=== PATIENT | male | born 1940 | race Caucasian/White ===

== ENCOUNTER 2022-02-06 11:49 | Day surgery (SDC) | payer MEDICARE, SELFPAY ==
[2022-01-30 10:14] VITALS: BMI 25.1
[2022-02-06 12:17] VITALS: BMI 24.4
--- NOTE | 2022-02-06 12:27 | WPDHPUPDATE1 ---
History and Physical Update Update Date/Time: 02/06/22 12:27 History and Physical has been reviewed, including an updated exam of the patient. There are NO changes in the patient's condition. Risks, benefits, and alternatives have been discussed and questions answered. Patient agrees to proceed with procedure.
[2022-02-06] MEDS: AMPICILLIN 2 GM/NS 100 ML 2 GM/100 ML BAG IVPB (12:35)
--- NOTE | 2022-02-06 12:39 | WPDANESEPPF ---
Anes - Initial Pre Proc Eval Procedure: Operation Date: 02/06/22 13:30 Proposed Procedures p Esophagogastroduodenoscopy - William Valdivia MD Date/Time: 02/06/22 12:39 Surgeon: William Valdivia MD Pre Op Diagnosis: Dyspepsia Patient Data Age: 81 Gender: M Height: 1.85 m Weight: 84 kg Allergies Allergy/AdvReac Type Severity Reaction Status Date / Time celecoxib Allergy Mild Rash Verified 02/06/22 12:11 montelukast Allergy Mild Hives Verified 02/06/22 12:11 Penicillins Allergy Unknown DIZZINESS Verified 02/06/22 12:11 Home Medications Medication Instructions Recorded Confirmed Type acetaminophen 500 mg capsule 500 mg PO Q6H PRN Pain 01/12/22 02/06/22 History cholecalciferol (vitamin D3) 25 25 mcg PO DAILY 01/12/22 02/06/22 History mcg (1,000 unit) capsule ibuprofen 400 mg tablet 400 mg PO Q6H PRN Pain 01/12/22 02/06/22 History levothyroxine 100 mcg capsule 100 mcg PO DAILY 01/12/22 02/06/22 History liothyronine 5 mcg tablet 5 mcg PO DAILY 01/12/22 02/06/22 History meclizine 12.5 mg tablet 12.5 mg PO TID 01/12/22 02/06/22 History mirtazapine 45 mg tablet 45 mg PO HS 01/12/22 02/06/22 History nitroglycerin 0.4 mg sublingual 0.4 mg sublingual Q5M PRN Chest 01/12/22 02/06/22 History tablet Pain simvastatin 20 mg tablet 20 mg PO DAILY 01/12/22 02/06/22 History triamcinolone acetonide 55 mcg 1 spray intranasal DAILY 01/12/22 02/06/22 History nasal spray aerosol aspirin 81 mg tablet,delayed 81 mg PO DAILY 01/17/22 02/06/22 History release pantoprazole 40 mg tablet,delayed 40 mg PO QAM 01/17/22 02/06/22 History release Patient hx anesthesia problems: none Family hx anesthesia problems: none Results Review: All pre-operative results and documents have been reviewed as part of the pre-operative evaluation. [facility] Past Medical History Medical History Arthritis BPH with urinary obstruction Coronary artery disease Dyslipidemia Erectile dysfunction Hyperlipidemia Hypothyroidism Obstructive sleep apnea Tonsillectomy planned Surgical History Surgical History H/O foot surgery H/O knee surgery History of heart artery stent Previous back surgery Social History Social History Smoking status: Never smoker Alcohol intake: former Alcohol use details: social Substance use: never Substance use type: does not use Living arrangements: with family Spiritual care concerns: No Anes - Eval Final PreProcedure Day of Procedure 02/06/22 12:39 Patient weight: normal Heart: regular rate and rhythm Lungs: clear to auscultation Airway: Mallampati scale class II Last oral intake: >/= 8 hours ASA classification: III Emergent: no Anesthetic plan: proceed Anesthesia type and monitoring: general GIVS Results Review: All pre-operative results and documents have been reviewed as part of the pre-operative evaluation. Informed Consent: The patient's anesthetic plan and its attendant risks and benefits were discussed with the patient/family/POA. Questions were solicited and answers provided to the satisfaction of the patient/family/POA.
[2022-02-06] MEDS: LACTATED RINGERS 1,000 ML 150 ML IV CONT (12:49)
[2022-02-06 13:35] VITALS: BP 109/74; PULSE 58; RESP 16; O2SAT 96
[2022-02-06 13:45] VITALS: BP 123/71; PULSE 58; RESP 16; O2SAT 96
[2022-02-06 13:55] VITALS: BP 154/98; PULSE 62; RESP 18; O2SAT 97
--- NOTE | 2022-02-06 13:56 | WPDANESPN ---
Anes - Prog Note Post-Op Date/Time: 02/06/22 13:56 Cardiovascular status: normal Respiratory status: normal Airway patency: baseline Mental status: baseline Post-Op hydration status: normal Vital Signs: Last Vital Signs Pulse 58 L 02/06/22 13:45 Resp 16 02/06/22 13:45 BP 123/71 02/06/22 13:45 Pulse Ox 96 02/06/22 13:45 O2 Del Method Room Air 02/06/22 13:45 Pain Score (VAS): 0 I/O: Intake & Output 02/05/22 02/06/22 02/06/22 23:59 07:59 15:59 Intake Total 300 Balance 300 Patient Feedback: Patient satisfied with anesthetic care.
== END 2022-02-06 14:19 | disposition home or self-care (01) ==
PROVIDERS: PCP Family Medicine; Referring Provider Internal Medicine; Visit Provider Internal Medicine Gastroenterology
PROC: 0DJ08ZZ Inspection of Upper Intestinal Tract, Via Natural or Artificial Opening Endoscopic (ICD-10-PCS; CPT 43235; principal; 2022-02-06 13:30)
DX: K30 Functional dyspepsia (principal)
CPT/HCPCS: 43239

== ENCOUNTER 2024-08-29 10:59 | Emergency (ER) | payer MEDICARE, SELFPAY ==
--- NOTE | ~2024-08-29 | XR_ITS ---
EXAMINATION: XR chest 2V DATE: 08/29/2024 12:02 INDICATION: Cough. TECHNIQUE: Frontal and lateral views of the chest were obtained. COMPARISON: Single view 10/11/2012 FINDINGS: Calcified pulmonary nodules and calcified hilar and mediastinal lymph nodes are consistent with old granulomatous disease. No pleural effusion or pneumothorax. The heart size is normal. There are old healed bilateral rib fractures. IMPRESSION: 1. No acute cardiopulmonary disease. Reviewed, dictated and finalized at location A. [facility]
--- OUTSIDE RECORDS SUMMARY | 2024-08-29 11:01 | XMS_ITS | Patient Health Summary ---
Author Organization [facility] Address [address] [place] [address] Care Team Providers Care Grove Worker Name Role Phone Tam Candelario MD Primary Care Provider [phone] Ilya Morrison MD Unavailable [phone] Anthony Granados MD Unavailable [phone] Note from [facility],non-owned Affiliates and Associated Physician Practices is amultiple site organization consisting of ambulatory clinics and hospital sitesin [place], [place], [place] and [place]. This disclosure is being madepursuant to the Care Everywhere program and may not contain all information available regarding this patient. Last updated 18.[facility] Allergies * Bupropion(Unknown) * Famotidine(Urticaria) -Medium Criticality * Montelukast(Urticaria) -Medium Criticality * Penicillins(Other) * Sertraline(Unknown) * Celecoxib(Rash) -Medium Criticality,Inactive * Esomeprazole(Urticaria) -Medium Criticality,Inactive Medications * Be aware that medications may not be up to date on this document. Alwaysverify current medications with the patient. * vitamin D3 (CHOLECALCIFEROL) (25 MCG) 1000 UNIT capsule(Started 07/21/2020) Take 1 (one) capsule by mouth once daily * vitamin B-12 (CYANOCOBALAMIN) 500 MCG tablet(Started 07/21/2020) Take 2 (two) tablets by mouth once daily * dutasteride (AVODART) 0.5 MG capsule(Started 01/05/2021) at bedtime * levothyroxine (SYNTHROID) 100 MCG tablet(Started 12/29/2020) once daily * liothyronine (CYTOMEL) 5 MCG tablet(Started 12/21/2020) once daily * mirtazapine (REMERON) 45 MG tablet(Started 12/29/2020) at bedtime * simvastatin (ZOCOR) 20 MG tablet(Started 12/21/2020) at bedtime * meclizine (ANTIVERT) 12.5 MG tablet Take 1 (one) tablet by mouth 3 times daily as needed for Dizziness * triamcinolone (NASACORT AQ) 55 MCG/ACT nasal inhaler [place] 1 (one) spray into each nostril as needed * amoxicillin (AMOXIL) 500 MG tablet(Started 01/25/2021) TAKE 4 TABLETS BY MOUTH 1 HOUR PRIOR TO APPOINTMENT * acetaminophen (TYLENOL) 325 MG tablet(Started 03/14/2021) Take 2 (two) tablets by mouth every 6 hours Maximum allowable Acetaminophen amount = 4 Grams (4000 mg) / 24 hours. * aspirin EC (Ecotrin) 81 MG tablet Take 1 (one) tablet by mouth once daily Active Problems Problem Noted Date Diagnosed Date Primary osteoarthritis of left knee 01/18/2021 Sleep apnea 11/27/2017 Spondylisthesis 11/25/2017 Vertigo 08/05/2017 Social History Tobacco Use Types Packs/Day Years Used Date Smoking Tobacco: Former Smokeless Tobacco: Never Tobacco Cessation:Counseling Given: Not Answered Alcohol Use Standard Drinks/Week Comments Yes 14 (1 standard drink = 0.6 oz pure alcohol) 2 each evening sometimes more sometimes less PHQ-2 Answer Date Recorded Patient Health Questionnaire-2 Score 2 12/28/2023 Sex and Gender Information Value Date Recorded Sex Assigned at Not on file Gender Identity Not on file Sexual Orientation Not on file Last Filed Vital Signs Vital Sign Reading Time Taken Comments Blood Pressure 153/98 12/30/2023 10:23 AM CDT Pulse 61 12/30/2023 10:23 AM CDT Temperature 36.5 C (97.7 F) 03/14/2021 11:23 AM CDT Respiratory Rate 18 03/14/2021 11:23 AM CDT Oxygen Saturation 100% 03/14/2021 11:23 AM CDT Inhaled Oxygen Concentration - - Weight 83.9 kg (185 lb) 12/30/2023 10:23 AM CDT Height 182.9 cm (6') 12/30/2023 10:23 AM CDT Body Mass Index 25.09 12/30/2023 10:23 AM CDT Medical Devices Implanted Type Area Food Production Machine Operator Device Identifier Shelf Expiration Date Model / Serial / Lot Cmnt Bone Djo Srg Cblt 40gm Hvisc Strl Implanted:Qty: 2 on 03/13/2021 by Ilya Morrison MD at [facility] Left: Knee [employer] 08/13/2022 [id number] / / [id number] Cmpnt Fem Kn Lt Cr Cmnt Prm Vngrd Intlk Implanted:Qty: 1 on 03/13/2021 by Ilya Morrison MD at [facility] Left: Knee [employer] 02/10/2030 [id number] / / [id number] Tray Tib 83mm Kn Cocr I Beam Implanted:Qty: 1 on 03/13/2021 by Ilya Morrison MD at [facility] Left: Knee [employer] 03/13/2030 [id number] / / [id number] Cmpnt Ptlr 31mm 1 Pg Wire Ascnt Arcm Kn Implanted:Qty: 1 on 03/13/2021 by Ilya Morrison MD at [facility] Left: Knee [employer] 01/10/[id number] / / [id number] Brng [id number] Vngrd Arcm Kn Ant Stab Implanted:Qty: 1 on 03/13/2021 by Ilya Morrison MD at [facility] Left: Knee [employer] 11/10/2025 [id number] / / [id number] Explanted Type Area Food Production Machine Operator Device Identifier Shelf Expiration Date Model / Serial / Lot Cmpnt Ptlr 31mm 1 Pg Wire Ascnt Arcm Kn Explanted:Qty: 1 on 03/13/[address] [facility] Left: Knee [employer] 01/10/[id number] / / [id number] Procedures * XR PELVIS W BILAT HIP 2VW(Performed 12/30/2023) Performed for Iliotibial band tendinitis of right side, Primary osteoarthritis of both hips * XR LUMBAR SPINE 4VW OR MORE(Performed 12/30/2023) Performed for Spinal stenosis of lumbar region, unspecified whether neurogenic claudication present, Lumbar radiculitis, Gait difficulty * XR KNEE BILAT 3VW(Performed 12/17/2023) Performed for Status post left knee replacement, Right knee pain, unspecified chronicity * XR KNEE LEFT 3VW(Performed 04/25/2021) Performed for Aftercare following left knee joint replacement surgery * NEURAXIAL BLOCK(Performed 03/13/2021) * ARTHROPLASTY TOTAL KNEE(Performed 03/13/2021) * XR KNEE LEFT 3VW(Performed 01/17/2021) Performed for Left knee pain, unspecified chronicity Results * XR PELVIS W BILAT HIP 2VW (12/30/2023 11:30 AM CDT) Anatomical Region Laterality Modality Pelvis, Lower Extremity Radiogra phic Imaging 12/30/2023 1:15 PM CDT Impressions 12/30/2023 1:28 PM CDT IMPRESSION: Degenerative changes. Edited by Haleigh Juarez on 12/30/2023 1:17 PM > Interpreting Provider: Heath Murry MD on 12/30/2023 1:28 PM Narrative 12/30/2023 1:28 PM CDT PROCEDURE: XR PELVIS W BILAT HIP 2VW DATE/TIME OF EXAM: 12/30/2023 11:31 AM CLINICAL INFORMATION: None relevant/not provided if blank. Indication: M76.31: Iliotibial band syndrome, right leg M16.0: Bilateral primary osteoarthritis of hip Additional History: COMPARISON: None. TECHNIQUE: Pelvis AP view and bilateral hips 2 views each. FINDINGS: Mild joint space narrowing of both hips is demonstrated. There is no acute fracture, subluxation or dislocation. Procedure Note Heath Murry MD - 12/30/2023 PROCEDURE: XR PELVIS W BILAT HIP 2VW DATE/TIME OF EXAM: 12/30/2023 11:31 AM CLINICAL INFORMATION: None relevant/not provided if blank. Indication: M76.31: Iliotibial band syndrome, right leg M16.0: Bilateral primary osteoarthritis of hip Additional History: COMPARISON: None. TECHNIQUE: Pelvis AP view and bilateral hips 2 views each. FINDINGS: Mild joint space narrowing of both hips is demonstrated. There is noacute fracture, subluxation or dislocation. IMPRESSION: Degenerative changes. Edited by Haleigh Juarez on 12/30/2023 1:17 PM > Interpreting Provider: Heath Murry MD on 12/30/2023 1:28 PM Anthony Granados MD DIAGNOSTIC IMAGING O RDERABLES * XR LUMBAR SPINE 4VW OR MORE (12/30/2023 11:30 AM CDT) Anatomical Region Laterality Modality Spine Radiographic Nicolasa ging 12/30/2023 1:38 PM CDT Impressions 12/30/2023 1:52 PM CDT IMPRESSION: 1. Grade 1 anterolisthesis L4 upon L5. 2. Degenerative changes. Edited by Haleigh Juarez on 12/30/2023 1:47 PM > Interpreting Provider: Heath Murry MD on 12/30/2023 1:52 PM Narrative 12/30/2023 1:52 PM CDT PROCEDURE: XR LUMBAR SPINE 4VW OR MORE DATE/TIME OF EXAM: 12/30/2023 11:31 AM CLINICAL INFORMATION: None relevant/not provided if blank. Indication: M48.061: Spinal stenosis, lumbar region without neurogenic claudication M54.16: Radiculopathy, lumbar region R26.9: Unspecified abnormalities of gait and mobility Additional History: COMPARISON: None. TECHNIQUE: 5 views. FINDINGS: Grade 1 anterolisthesis L4 upon L5 is present. Endplate degenerative changes are present. There is no acute fracture. Procedure Note Heath Murry MD - 12/30/2023 PROCEDURE: XR LUMBAR SPINE 4VW OR MORE DATE/TIME OF EXAM: 12/30/2023 11:31 AM CLINICAL INFORMATION: None relevant/not provided if blank. Indication: M48.061: Spinal stenosis, lumbar region without neurogenic claudication M54.16: Radiculopathy, lumbar region R26.9: Unspecified abnormalities of gait and mobility Additional History: COMPARISON: None. TECHNIQUE: 5 views. FINDINGS: Grade 1 anterolisthesis L4 upon L5 is present. Endplate degenerative changes are present. There is no acute fracture. IMPRESSION: 1. Grade 1 anterolisthesis L4 upon L5. 2. Degenerative changes. Edited by Haleigh Jaurez on 12/30/2023 1:47 PM > Interpreting Provider: Heath Murry MD on 12/30/2023 1:52 PM Anthony Granados MD DIAGNOSTIC IMAGING O RDERABLES * XR KNEE BILAT 3VW (12/17/2023 11:16 AM CDT) Narrative [facility] [address] - 12/17/2023 11:16 AM CDT Please see progress note in Epic for results. Ilya Morrison MD DIAGNOSTIC IMAGING O RDERARICARDO [facility] [address] * XR KNEE LEFT 3VW (04/25/2021 12:23 PM CDT) Only the most recent of2 resultswithin the time period is included. Anatomical Region Laterality Modality Lower Extremity Computed Radiogr aphy Narrative 04/25/2021 12:24 PM CDT Evelyn Jimenez, RT(R) 05/04/2021 5:12 PM See progress notes for results Fela Keller PA-C DIAGNOSTIC IM AGING ORDERABLES * Neuraxial Block (03/13/2021 11:17 AM CDT) Narrative Nate Mosley APRN-CRNA - 03/13/2021 11:17 AM CDT Nate Mosley APRN-CRNA 03/13/2021 11:19 AM Neuraxial Block Note Pre-Procedure: Procedure Name: Neuraxial Block Patient Location: OR Indications: surgical anesthesia Pre-Anesthetic Checklist: Patient identified, IV Checked, Risks and benefits discussed, Surgical consent verified, Monitors and equipment, Site examined, Pre-op evaluation done, Informed consent obtained, Questions answered/anesthesia questions answered and Allergies reviewed Anticoagulation/ Anti-thrombosis status confirmed? Yes Supplemental O2: room air Monitors: BP and continuous pluse ox Patient Condition: sedated, meaningful contact maintained throughout procedure Procedure: Block Type: Spinal Prep: Betadine Sterile Field: mask, cap/hat, sterile established and sterile gloves Approach: midline Spinal Block: Needle Type: spinal needle Needle Gauge: 22 Needle Length: 90 mm Placement Site: L3-4 Number of Attempts: 1 CSF: free flow, aspiration before injection, aspiration after injection Degree of difficulty: none Procedure Tolerance: tolerated well Sensory Level: T8 Motor Blockade: Yes (some, not complete ) Position post procedure: sitting Vital Signs: Vital signs monitored and stable throughout. See anesthesia record for details. Staff: Anesthesia Provider: Nate Mosley APRN-MULTIMEDIA AUTHORING SPECIALIST - performed the procedure Provider #1: Elvin Herring RN Additional Notes: Nevaeh SRNA Placed spinal Dirk Manley MD GENERAL ANESTHESIA O [facility] Care Teams Grove Worker Relationship Specialty [place] [address] [place] [address] PCP - General Family Medicine 01/17/21 [place] [address] [place] [id number] Surgeon Orthopedic Surgery 01/17/21 [place] [address] [place] [address] Physical Medicine and Rehabilitation 12/30/23
--- OUTSIDE RECORDS SUMMARY | 2024-08-29 11:01 | XMS_ITS | Clinical Summary ---
Author Organization [facility] Care Team Providers Care Front End Manager Name Role Phone Tam Candelario MD Primary Care Provider [phone] Allergies Active Allergy Reactions Criticality Noted Date Comments Bupropion Unknown 03/28/2013 Cannot recall Pt unaware of allergy Celecoxib Rash Medium 04/14/2021 Esomeprazole Hives,Urticaria Medium 01/02/2016 Pt unaware of allergy Famotidine Hives,Urticaria Medium 01/02/2016 Montelukast Hives,Urticaria Medium 01/02/2016 Penicillins Other (See comments) Low 01/02/2016 Passing out Passing out as a child Takes amoxicillin at dentist Sertraline Unknown 03/28/2013 Cannot recall Not aware of this allergy Medications acetaminophen (TYLENOL) 500 mg tablet Take 1 tablet (500 mg total) by mouth every 4 (four) hours as needed 8 Active amoxicillin (AMOXIL) 500 mg tablet/capsule Take 1 tablet/capsule (500 mg total) by mouth as needed Only uses for dental Active cholecalcifero l (VITAMIN D-3) 1,000 unit capsule Take 1 capsule (1,000 Units total) by mouth daily 1 Active ibuprofen (ADVIL,MOTRIN) 200 mg tab/cap Take 2 tablet/capsule (400 mg total) by mouth 2 (two) times a day as needed 2 Active levothyroxine (SYNTHROID) 100 mcg tablet levothyroxine 100 mcg tablet TK 1 T PO D. 1 Active liothyronine (CYTOMEL) 5 mcg tablet liothyronine 5 mcg tablet TK ONE T PO QAM BEFORE BREAKFAST 1 Active meclizine (ANTIVERT) 12.5 mg tablet Take 1 tablet (12.5 mg total) by mouth as needed 7 Active mirtazapine (REMERON) 45 mg tablet mirtazapine 45 mg tablet TK 1 T PO QHS 1 Active nitroglycerin (NITROSTAT) 0.[address] 1 tablet (0.4 mg total) under the tongue every 5 (five) minutes as needed 3 Active simvastatin (ZOCOR) 20 mg tablet simvastatin 20 mg tablet TK 1 T PO D HS 1 Active triamcinolone (NASACORT) 55 mcg nasal inhaler Take as directed, when needed 8 Active aspirin 81 mg enteric coated tablet Take 1 tablet (81 mg total) by mouth daily Active predniSONE (DELTASONE) 10 mg tablet 20 mg bid x 5 days, 10 mg bid x 3 days, 10 mg daily x 3 days 29 tablet 2 Active Active Problems Problem Noted Date Diagnosed Date Dysfunction of both eustachian tubes 05/08/2022 Bilateral chronic serous otitis media 04/24/2022 Sensorineural hearing loss (SNHL) of both ears 1 06/24/2021 Surgical History Surgery Date Site/Laterality Comments BACK SURGERY 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 CARDIAC STENT PLACEMENT FOOT SURGERY KNEE SURGERY 03/13/2021 Left REPLACEMENT TOTAL KNEE 06/24/2012 - 06/23/2013 TONSILLECTOMY Medical History Medical History Date Comments Allergic rhinitis Heart disease Sinusitis Thyroid disease Vertigo HL (hearing loss) Social History Tobacco Use Types Packs/Day Years Used Date Smoking Tobacco: Former Cigarettes Q uit: 1970 Smokeless Tobacco: Never Tobacco Cessation:Counseling Given: Not Answered Personal Safety Answer Date Recorded Getting School Help Needed Not on file 06/27 Sex and Gender Information Value Date Recorded Sex Assigned at Not on file Legal Sex Male 4:17 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 Gender Identity Not on file Sexual Orientation Not on file Obstetrics History Last Filed Vital Signs Vital Sign Reading Time Taken Comments Blood Pressure - - Pulse - - Temperature - - Respiratory Rate 18 05/07/2022 9:00 AM KISS MACHINE OPERATOR Oxygen Saturation - - Inhaled Oxygen Concentration - - Weight 83.9 kg (185 lb) 05/07/2022 9:00 AM KISS MACHINE OPERATOR Height 182.9 cm (6') 05/07/2022 9:00 AM KISS MACHINE OPERATOR Body Mass Index 25.09 05/07/2022 9:00 AM KISS MACHINE OPERATOR Plan of Treatment Health Maintenance Due Date Last Done Comments Depression Screening 1942 Fall Risk Assessment 1940 Hepatitis B Screening 1960 Zoster Vaccine (1 of 2) 1992 1940 Well Visit 65+ 12/12/2007 DTaP/Tdap/Td Vaccine (2 - Td or Tdap) 04/02/2017 04/02/2007 Covid-19 Vaccine ( - 2023-2 5 season) 2024 12/01/2021, 06/08/2021, 09/12/2020, Additional history exists Influenza Vaccine (#1) 2024 , 04/11/2021, 02/17/2020, Additional history exists Pneumococcal vaccine 65+ Completed 019, 01/01/2018, 04/21/2015 Insurance [employer] [facility] Address: [address] [address] Care Teams Front End Manager Relationship Specialty [place] [address] [place] [address] PCP - General Family Practice 04/10/22
--- OUTSIDE RECORDS SUMMARY | 2024-08-29 11:01 | XMS_ITS | Clinical Summary ---
Author Organization [facility] Address [address] [place] [id number] Care Team Providers Care Applications Analyst Name Role Phone Unavailable Primary Care Provider Unavailabl e Encounters Date Type Department Care Team Description 08/12/2024 External Device Data [facility] Provider, Abstract 07/15/2024 External Device Data [facility] Provider, Abstract 07/15/2024 External Device Data [facility] Provider, Abstract from Last 3 Months Social History Tobacco Use Types Packs/Day Years Used Date Smoking Tobacco: Never Assessed Sex and Gender Information Value Date Recorded Sex Assigned at Not on file Legal Sex Male 3:51 PM CDT Gender Identity Not on file Sexual Orientation Not on file Plan of Treatment Health Maintenance Due Date Last Done Comments ZOSTER VACCINE (1 of 2) 1992 1942 DTAP/TDAP/TD VACCINES (2 - T d or Tdap) 04/02/2017 04/02/2007 RSV VACCINE (60+ or ) (1 - 1-dose 75+ series) 2017 INFLUENZA VACCINE (#1) 2024 3, 03/29/2022, 04/11/2021, Additional history exists COVID-19 Vaccine (2023-2 5 season) 2024 12/01/2021, 06/08/2021, 09/12/2020, Additional history exists PNEUMOCOCCAL VACCINE 50+ YEARS Completed 0 03/19/2019, 01/01/2018, 04/21/2015 Insurance [facility] [id number]
--- OUTSIDE RECORDS SUMMARY | 2024-08-29 11:01 | XMS_ITS | Clinical Summary ---
Author Organization [facility] Address [address] [place] [address] Care Team Providers Care Cereal Maker Name Role Phone Tam Candelario MD Primary Care Provider [phone] Ilya Morrison MD Unavailable [phone] Anthony Granados MD Unavailable [phone] Source Comments [facility],non-owned Affiliates and Associated Physician Practices is amultiple site organization consisting of ambulatory clinics and hospital sitesin [place], [place], [place] and [place]. This disclosure is being madepursuant to the Care Everywhere program and may not contain all information available regarding this patient. Last updated 18.[facility] Allergies Active Allergy Reactions Criticality Noted Date Comments Bupropion Unknown 03/28/2013 Cannot recall Famotidine Urticaria Medium 01/02/2016 Montelukast Urticaria Medium 01/02/2016 Penicillins Other 01/02/2016 Passing out Sertraline Unknown 03/28/2013 Cannot recall Medications * Be aware that medications may not be up to date on this document. Alwaysverify current medications with the patient. Medication Sig Dispensed Refills Start Date End Date Status vitamin D3 (CHOLECALCIFEROL) (25 MCG) 1000 UNIT capsule Take 1 (one) capsule by mouth once daily 07/21/2020 Active vitamin B-12 (CYANOCOBALAMIN) 500 MCG tablet Take 2 (two) tablets by mouth once daily 07/21/2020 Active dutasteride (AVODART) 0.5 MG capsule at bedtime 01/05/2021 Active levothyroxine (SYNTHROID) 100 MCG tablet once daily 12/29/2020 Active liothyronine (CYTOMEL) 5 MCG tablet once daily 12/21/2020 Active mirtazapine (REMERON) 45 MG tablet at bedtime 12/29/2020 Active simvastatin (ZOCOR) 20 MG tablet at bedtime 12/21/2020 Active meclizine (ANTIVERT) 12.5 MG tablet Take 1 (one) tablet by mouth 3 times daily as needed for Dizziness Active triamcinolone (NASACORT AQ) 55 MCG/ACT nasal inhaler Romance 1 (one) spray into each nostril as needed Active amoxicillin (AMOXIL) 500 MG tablet TAKE 4 TABLETS BY MOUTH 1 HOUR PRIOR TO APPOINTMENT 01/25/2021 Active acetaminophen (TYLENOL) 325 MG tablet Take 2 (two) tablets by mouth every 6 hours Maximum allowable Acetaminophen amount = 4 Grams (4000 mg) / 24 hours. 03/14/2021 Active aspirin EC (Ecotrin) 81 MG tablet Take 1 (one) tablet by mouth once daily Active Active Problems Problem Noted Date Diagnosed Date Primary osteoarthritis of left knee 01/18/2021 Sleep apnea 11/27/2017 Spondylisthesis 11/25/2017 Overview (03/24/2022): IMO 2021 Update Vertigo 08/05/2017 Social History Tobacco Use Types [...] Mass Index 25.09 12/30/2023 10:23 AM CDT Plan of Treatment Health Maintenance Due Date Last Done Comments DTAP/TDAP/TD VACCINES (1 - Tdap) 1961 PNEUMOCOCCAL VACCINE 50+ (1 of 1 - PCV) 1992 ZOSTER VACCINE (1 of 2) 1992 Respiratory Syncytial Virus (RSV) Vaccine Pt: or over 60 yrs (1 - 1-dose 75+ series) 2017 COVID-19 VACCINE (5 - season) 2024 12/01/2021, 06/08/2021, 09/12/2020, Additional history exists INFLUENZA VACCINE (#1) 2024 , 03/18/2019, 04/09/2018, Additional history exists DEPRESSION SCREENING 06/24/2024 12/17/2023 MEDICARE AWV CALENDAR YEAR 2024 HEPATITIS B VACCINE Aged Out No longe r eligible based on patient's age to complete this topic HIB VACCINE Aged Out No longer eligi ble based on patient's age to complete this topic HPV VACCINE Aged Out No longer eligi ble based on patient's age to complete this topic MENINGOCOCCAL (Group B) VACCINE Aged Out No longer eligible based on patient's age to complete this topic MENINGOCOCCAL VACCINE Aged Out No [place] eligible based on patient's age to complete this topic Medical Devices Implanted Type Area Rail Transportation Tabeler Device Identifier Shelf Expiration Date Model / Serial / Lot Cmnt Bone Djo Srg Cblt 40gm Hvisc Strl Implanted:Qty: 2 on 03/13/2021 by Ilya Morrison MD at [facility] Left: Knee [employer] 08/13/2022 600-15-000 / / [id number] Cmpnt Fem Kn Lt Cr Cmnt Prm Vngrd Intlk Implanted:Qty: 1 on 03/13/2021 by Ilya Morrison MD at [facility] Left: Knee [employer] 02/10/2030 [id number] / / [id number] Tray Tib 83mm Kn Cocr I Beam Implanted:Qty: 1 on 03/13/2021 by Ilya Morrison MD at [facility] Left: Knee [employer] 03/13/2030 [id number] / / [id number] Cmpnt Ptlr 31mm 1 Pg Wire Ascnt Arcm Kn Implanted:Qty: 1 on 03/13/2021 by Ilya Morrison MD at [facility] Left: Knee [employer] 01/10/2026 [id number] / / [id number] Brng [id number] Vngrd Arcm Kn Ant Stab Implanted:Qty: 1 on 03/13/2021 by Ilya Morrison MD at [facility] Left: Knee [employer] 11/10/2025 [id number] / / [id number] Explanted Type Area Rail Transportation Tabeler Device Identifier Shelf Expiration Date Model / Serial / Lot Cmpnt Ptlr 31mm 1 Pg Wire Ascnt Arcm Kn Explanted:Qty: 1 on 03/13/2021 at [facility] Left: Knee [employer] 01/10/2026541831 / / [id number] Advance Directives Documents on File Type Date Recorded Patient Rig Hand Expl anation Adv Directive/Living Will/POA 03/15/2021 7:46 PM * Full Code (Latest Code Status on File) Date Activated Date Inactivated Comments 03/13/2021 3:33 PM 03/14/2021 5:51 PM Care Teams Cereal Maker Relationship Specialty [place] [address] [place] [address] PCP - General Family Medicine 01/17/21 [place] [address] [place], [place] [id number] Surgeon Orthopedic Surgery 01/17/21 [place] [address] [place] [address] Physical Medicine and Rehabilitation 12/30/23
--- OUTSIDE RECORDS SUMMARY | 2024-08-29 11:01 | XMS_ITS | Referral Summary ---
Author Organization [facility] HealthCare Care Team Providers Care Machine Long Goods Helper Name Role Phone Tam Candelario MD Primary Care Provider [phone] Allergies Active Allergy Reactions Criticality Noted Date [...] loss (SNHL) of both ears 1 06/24/2021 Social History Tobacco Use Types Packs/Day Years Used Date Smoking Tobacco: Former Cigarettes Q uit: 1970 Smokeless Tobacco: Never Tobacco Cessation:Counseling Given: Not Answered Personal Safety Answer Date Recorded Getting School Help Needed Not on file 06/27 Sex and Gender Information Value Date Recorded Sex Assigned at Not on file Legal Sex Male 4:17 PM CONSULTING MANAGER Gender Identity Not on file Sexual Orientation Not on file Last Filed Vital Signs Vital Sign Reading Time Taken Comments Blood Pressure - - Pulse - - Temperature - - Respiratory Rate 18 05/07/2022 9:00 AM CONSULTING MANAGER Oxygen Saturation - - Inhaled Oxygen Concentration - - Weight 83.9 kg (185 lb) 05/07/2022 9:00 AM CONSULTING MANAGER Height 182.9 cm (6') 05/07/2022 9:00 AM CONSULTING MANAGER Body Mass Index 25.09 05/07/2022 9:00 AM CONSULTING MANAGER Plan of Treatment Not on file Insurance [employer] Care Teams Machine Long Goods Helper Relationship Specialty [place] [address] [place] [address] PCP - General Family Practice 04/10/22
--- OUTSIDE RECORDS SUMMARY | 2024-08-29 11:01 | XMS_ITS | Referral Summary ---
Author Organization [facility] Address [address] [place] [address] Care Team Providers Care Trade Show Specialist Name Role Phone Tam Candelario MD Primary Care Provider [phone] Ilya Morrison MD Unavailable [phone] Anthony Granados MD Unavailable [phone] [facility],non-owned Affiliates and Associated Physician Practices is amultiple site organization consisting of ambulatory clinics and hospital sitesin [place], [place] and [place]. This disclosure is being madepursuant to the Care Everywhere program and may not contain all information available regarding this patient. Last updated 18.[facility] Allergies Active Allergy Reactions Criticality Noted [...] triamcinolone (NASACORT AQ) 55 MCG/ACT nasal inhaler [place] 1 (one) spray into each nostril as [...] 12/30/2023 10:23 AM CDT Plan of Treatment Not on file Medical Devices Implanted Type Area Clinical Documentation Developer Device Identifier Shelf Expiration Date Model / Serial / Lot Cmnt Bone Djo Srg Cblt 40gm Hvisc Strl Implanted:Qty: 2 on 03/13/2021 by Ilya Morrison MD at [facility] Left: Knee [employer] 08/13/2022 600-15-000 / / [id number] Cmpnt Fem Kn Lt Cr Cmnt Prm Vngrd Intlk Implanted:Qty: 1 on 03/13/2021 by Ilya Morrison MD at [facility] Left: Knee [employer] 02/10/2030 [id number] / / [id number] Tray Tib 83mm Kn Cocr I Beam Implanted:Qty: 1 on 03/13/2021 by Ilya Morrison MD at [facility] Left: Knee [employer] 03/13/2030 [id number] / / [id number] Cmpnt Ptlr 31mm 1 Pg Wire Ascnt Arcm Kn Implanted:Qty: 1 on 03/13/2021 by Ilya Morrison MD at [facility] Left: Knee [employer] 01/10/2026364710 / / [id number] Brng [id number] Vngrd Arcm Kn Ant Stab Implanted:Qty: 1 on 03/13/2021 by Ilya Morrison MD at [facility] Left: Knee [employer] 11/10/2025 [id number] / / [id number] Explanted Type Area Clinical Documentation Developer Device Identifier Shelf Expiration Date Model / Serial / Lot Cmpnt Ptlr 31mm 1 Pg Wire Ascnt Arcm Kn Explanted:Qty: 1 on 03/13/2021 at [facility] Left: Knee [employer] 01/10/2026702848 / / [id number] Advance Directives Documents on File Type Date Recorded Patient Photogrammetric Compilation Specialist Expl anation Adv Directive/Living Will/POA 03/15/2021 7:46 PM * Full Code (Latest Code Status on File) Date Activated Date Inactivated Comments 03/13/2021 3:33 PM 03/14/2021 5:51 PM Care Teams Trade Show Specialist Relationship Specialty Start [place] [address] [place] [address] PCP - General Family Medicine 01/17/21 [place] [address] [place] [address] Surgeon Orthopedic Surgery 01/17/21 [place] [address] [place] [address] Physical Medicine and Rehabilitation 12/30/23
--- OUTSIDE RECORDS SUMMARY | 2024-08-29 11:04 | XMS_ITS | Clinical Summary ---
Author Organization [facility] Address [address] [place] [address] Care Team Providers Care Shake Packer Name Role Phone Tam Candelario MD Primary Care Provider [phone] Kristopher Knight MD Unavailable [phone] Allergies Active Allergy Reactions Criticality Noted Date Comments Bupropion Unknown 03/28/2013 Pt unaware of allergy Celecoxib Rash Low 04/14/2021 Esomeprazole Hives 01/02/2016 Pt unaware of allergy Famotidine Hives 01/02/2016 Montelukast Hives 01/02/2016 Penicillins Other (see comment) 01/02/2016 Passing out as a child Takes amoxicillin at dentist Sertraline Unknown 03/28/2013 Not aware of this allergy Medications aspirin 81 MG tablet Take 1 tablet (81 mg total) by mouth daily. 09/24/19 13 Active meclizine 12.5 MG tablet Take 1 tablet (12.5 mg total) by mouth as needed. 01/29/20 17 Active triamcinolone acetonide 55 MCG/ACT nasal inhaler Take as directed, when needed 02/18/20 18 Active acetaminophen 500 MG tablet Take 1 tablet (500 mg total) by mouth every 4 (four) hours as needed. 11/26/19 18 Active ORAL APPLIANCE, DME,Indications :RAO (obstructive sleep apnea) Take 1 Device by mouth nightly at bedtime. 1 Device 1 06/25/19 20 Active ibuprofen 200 MG tablet Take 2 tablets (400 mg total) by mouth 2 (two) times daily as needed for Pain. 10/05/19 22 Active Probiotic Product (PROBIOTIC ADVANCED) Cap Active Apoaequorin (PREVAGEN OR) Take by mouth daily. Active nitroglycerin (NITROSTAT) 0.[address] 1 tablet (0.4 mg total) under the tongue every 5 (five) minutes as needed for Chest Pain. Maximum of 3 doses. If taking 3rd dose call 911 25 tablet 1 01/29/20 23 Active vitamin B-12 (CYANOCOBALAMIN ) (CYANOCOBALAMIN ) 1000 mcg tablet Take 1 tablet (1,000 mcg total) by mouth daily. Active simvastatin (ZOCOR) 20 MG tabletIndicatio ns:Dyslipidemia TAKE 1 TABLET(20 MG) BY MOUTH EVERY NIGHT AT BEDTIME 90 tablet 1 03/20/20 24 Active levothyroxine (SYNTHROID) 100 MCG tabletIndicatio ns:Hyperthyroid ism TAKE 1 TABLET(100 MCG) BY MOUTH DAILY 90 tablet 1 03/20/20 24 Active liothyronine (CYTOMEL) 5 MCG TabIndications: Hypothyroidism TAKE 1 TABLET(5 MCG) BY MOUTH EVERY MORNING BEFORE BREAKFAST 90 tablet 1 04/06/20 24 Active mirtazapine (REMERON) 45 MG tabletIndicatio ns:Depression with anxiety TAKE 1 TABLET(45 MG) BY MOUTH EVERY NIGHT AT BEDTIME 90 tablet 06/22/20 24 Active Spacer/Aero-Hol ding Chambers (AEROCHAMBER MV) MiscIndications :Upper respiratory tract infection, unspecified type Use with albuterol inhaler 1 each 06/26/19 25 Active albuterol sulfate HFA 108 (90 Base) MCG/ACT inhalerIndicati ons:Upper respiratory tract infection, unspecified type Inhale 2 puffs into the lungs every 6 (six) hours as needed. 8 g 08/04/19 25 Active albuterol sulfate HFA 108 (90 Base) MCG/ACT inhalerIndicati ons:Upper respiratory tract infection, unspecified type Inhale 2 puffs into the lungs every 6 (six) hours as needed. 8 g 06/26/19 25 025 Discontinued(Re order) cefdinir (OMNICEF) 300 MG Cap capsuleIndicati ons:Bronchitis Take 1 capsule (300 mg total) by mouth 2 (two) times daily. 24 capsule 07/06/19 25 025 Discontinued Active Problems Problem Noted Date Diagnosed Date Gastroesophageal reflux disease without esophagi tis 10/25/2021 Primary osteoarthritis of left knee 01/18/2021 Spinal stenosis 01/13/2018 Gout 11/27/2017 Sleep apnea 11/27/2017 Spondylisthesis 11/25/2017 Vertigo 08/05/2017 Sacroiliac pain 11/16/2016 Hypertension 07/24/2016 Decreased libido 11/10/2013 Glenohumeral arthritis 08/04/2013 Premature ventricular contractions 06/05/2013 Vitamin B12 deficiency 03/16/2013 Heartburn 01/23/2013 Allergic rhinitis 10/01/2012 BPH without obstruction/lower urinary tract symp toms 07/28/2012 Depression with anxiety 07/28/2012 Epigastric pain 07/28/2012 Insomnia 06/25/2012 Hyperlipidemia 04/25/2012 Hypothyroidism 04/25/2012 Chronic coronary artery disease Dyslipidemia Overview (01/10/2016): Hyperlipidemia / Dyslipidemia Encounters Date Type Department Care Team Description 08/04/2024 8:00 AM LABOR RELATIONS TEACHER Office Visit [facility] [address] [phone] Tam Candelario MD Follow Up; Hypertension; Hyperlipidemia; Congestion (Pt states he cough up phlegm ever morning had bronchitis in the beginning of jun ) 08/04/2024 Travel 07/06/2024 11:30 AM LABOR RELATIONS TEACHER - 07/06/2024 11:59 PM LABOR RELATIONS TEACHER Hospital Encounter [facility] Diagnostic [facility] [address] [place] [id number] Yuliana Gee PA Discharge Disposition: Home or Self Care (Routine Discharge) 07/06/2024 11:00 AM LABOR RELATIONS TEACHER Office Visit [facility] [address] [phone] Yuliana Gee PA Back Pain (Upper back pain to right side radiates to shoulder blade-slipped on ice 3 days ago at home) 07/06/2024 Travel 06/26/2024 2:00 PM LABOR RELATIONS TEACHER Office Visit [facility] [address] [phone] Carlos Baldwin PA URI (Pt c/o chest discomfort(last 3 days) and cough X 1 week) 06/26/2024 Travel from Last 3 Months Immunizations Name Administration Dates Next Due FLUAD (IIV, Trivalent, 0.5 M L Pre-filled Syringe) 03/20/2024 Fluad influenza vaccine, Estevan drivalent (aIIV4), Inactivated, adjuvanted, preservative free, 0.5 mL,IM use 03/18/2019,04/08/2018,04/23/2017,2015,04/12/2015,03/12/2014,03/07/2013 Fluzone High Dose (IIV, triv alent, 0.5mL) 03/18/2019,04/20/2016,03/07/2013 Fluzone High Dose - >Age 65 (Prefilled Syringe) 03/29/2023,03/29/2022,04/11/2021,2019,03/18/2019,04/23/2017,04/20/2016,1 ,03/12/2014,03/07/2013 Influenza (Afluria - Preserv ative Free) 04/08/2018 Influenza (Generic) 04/09/2018,1942 Influenza Adult (Generic) 03/29/2022,,04/24/2017,2015,04/13/2015,03/12/2014,03/07/2013,1 06/25/2011 MODERNA COVID-19 (12+) MRNA, LNP-S, PF, 100 MCG/ 0.5 ML DOSE 09/12/2020,08/11/2020 MODERNA COVID-19 (ACCESSIBILITY LIFT TECHNICIAN KISHORE ALEYDA), MRNA, LNP-S, PF, 50 MCG/ 0.25 ML DOSE 12/01/2021,06/08/2021 Pneumococcal (Pneumovax 23) 03/19/2019 Pneumococcal (Prevnar 13) 01/01/2018,04/21/2015 Tdap (Generic) 04/02/2007 Zoster (Zostavax) 10866 Unt/0.65Ml 1942 Family History Medical History Relation Comments Cancer Father None Mother No family history of premature coronary artery d isease. Other Relation Status Comments Father Mother Other Social History Tobacco Use Types Packs/Day Years Used Date Smoking Tobacco: Former Cigarettes 1 15 1 965 1979 Passive Smoke Exposure: Past Smokeless Tobacco: Never Tobacco Cessation:Counseling Given: No Comments:former smoker quit 1979 Alcohol Use Standard Drinks/Week Comments Yes 0 (1 standard drink = 0.6 oz pur e alcohol) Drinks socially PHQ-2 Answer Date Recorded Patient Health Questionnaire-2 Score 0 03/29/2023 Education Answer Date Recorded What is the highest level of school you have completed or the highest degree you have received? Some college, no degree 08/11/2018 Sex and Gender Information Value Date Recorded Sex Assigned at Male 08/04/2024 7:45 AM LABOR RELATIONS TEACHER Legal Sex Male 1:28 AM CDT Gender Identity Male 08/04/2024 8:01 AM LABOR RELATIONS TEACHER Sexual Orientation Straight 08/11/2018 7: 24 AM LABOR RELATIONS TEACHER Occupation Industry Job Start Date Job End Date Not on file Not on file Not on file Not on file Last Filed Vital Signs Vital Sign Reading Time Taken Comments Blood Pressure 117/74 08/04/2024 7:59 AM LABOR RELATIONS TEACHER Pulse 78 08/04/2024 7:59 AM LABOR RELATIONS TEACHER Temperature 36.4 C (97.6 F) 08/04/2024 7:59 AM LABOR RELATIONS TEACHER Respiratory Rate 16 08/04/2024 7:59 AM LABOR RELATIONS TEACHER Oxygen Saturation 96% 08/04/2024 7:59 AM LABOR RELATIONS TEACHER Inhaled Oxygen Concentration - - Weight 85.3 kg (188 lb) 08/04/2024 7:59 AM LABOR RELATIONS TEACHER Height 185.4 cm (6' 1 ) 08/04/2024 7:59 AM LABOR RELATIONS TEACHER Body Mass Index 24.8 08/04/2024 7:59 AM LABOR RELATIONS TEACHER Plan of Treatment Upcoming Encounters Date Type Department Care Team (Late st Contact Info) Description 01/25/2025 8:00 AM CDT Laboratory Only [facility] Medical [facility] [address] [place] [phone] 02/01/2025 9:00 AM CDT Office Visit [facility] [id number] [place] [phone] [place] [address] [place] [address] 05/26/2025 9:00 AM LABOR RELATIONS TEACHER Appointment [facility] [address] [place] [address] Sandra Malhotra FNP 3 [facility] [address] [place], [place] [phone] 05/31/2025 9:15 AM LABOR RELATIONS TEACHER Office Visit [facility] [address] [place] [phone] Kristopher Knight MD Three [facility]. [address] [place], [place] [address] Health Maintenance Due Date Last Done Comments Zoster Vaccines (1 of 2) 1992 1940 Annual Medicare Wellness Visit 12/12/2007 DTaP, Tdap and Td Vaccines (2 - Td or Tdap) 04/02/2017 04/02/2007 RSV Immunization or 60+ Years (1 - 1-dose 75+ series) 2017 PHQ-2 (Physician [place]) 06/24/2024 03/29/2023 Pneumococcal Vaccine: 65+ Years Completed 03/19/2019, 01/01/2018, 04/21/2015 COVID-19 Vaccine Completed 03/20/2024, 05/2023, 12/01/2021, Additional history exists Influenza Adult Completed 03/20/2024, 11/2022, 03/29/2022, Additional history exists Meningococcal B Vaccine Aged Out No l onger eligible based on patient's age to complete this topic Meningococcal Vaccine Aged Out No neno carlton eligible based on patient's age to complete this topic RSV Immunizations Under 20 Months Aged Out No longer eligible based on patient's age to complete this topic Procedures Procedure Name Priority Date/Time Associated Diagnosis Comments XR RIBS RT UNI STAT 07/06/2024 11:45 AM LABOR RELATIONS TEACHER Fall, initial encounter Rib pain on right side XR CHEST PA+LAT STAT 07/06/2024 11:45 AM LABOR RELATIONS TEACHER Rib pain on right side Bronchitis CORONAVIRUS (COVID-19) INFLUENZA A & B ANTIGEN IA PANEL Routine 06/26/2024 Suspected COVID-19 virus infection from Last 3 Months Results * XR RIBS RT UNI (07/06/2024 11:45 AM LABOR RELATIONS TEACHER) Anatomical Region Laterality Modality Chest Radiographic Nicolasa ging 07/06/2024 11:4 7 AM LABOR RELATIONS TEACHER Impressions 07/06/2024 11:54 AM LABOR RELATIONS TEACHER IMPRESSION: Right fifth through seventh ribs are present posteriorly and anterior right fifth rib fracture. No pneumothorax. Small effusion. Ordered By: YULIANA GEE Interpreted By: Matt Camp MD, 07/06/2024 11:47 AM Narrative 07/06/2024 11:54 AM LABOR RELATIONS TEACHER [address] [place] [address] Procedure(s): XR CHEST PA+LAT, XR RIBS RT UNI Date of service: 07/06/2024 11:32 AM Provided clinical information: 83 years, Male, cough - rib pain from fall Procedure and materials: PA and lateral chest, AP and oblique views right ribs. Comparison studies: December 18, 2013. Findings: Cardiac silhouette is within normal limits. The lungs expanded clear of any consolidations. No pneumothorax. Minimal blunting of the right costophrenic angle due to pleural effusion. There is a minimally displaced right fifth rib anterior fracture. There are fractures of the posterior aspect of the right fifth, sixth and seventh ribs. No pneumothorax. Procedure Note Matt Camp MD - 07/06/2024 [facility] [id number] [facility] [place] [address] Procedure(s): XR CHEST PA+LAT, XR RIBS RT UNI Date of service: 07/06/2024 11:32 AM Provided clinical information: 83 years, Male, cough - rib pain from fall Procedure and materials: PA and lateral chest, AP and oblique views rightribs. Comparison studies: December 18, 2013. Findings: Cardiac silhouette is within normal limits. The lungs expanded clear ofany consolidations. No pneumothorax. Minimal blunting of the rightcostophrenic angle due to pleural effusion. There is a minimally displaced right fifth rib anterior fracture. Thereare fractures of the posterior aspect of the right fifth, sixth andseventh ribs. No pneumothorax. IMPRESSION: Right fifth through seventh ribs are present posteriorly and anteriorright fifth rib fracture. No pneumothorax. Small effusion. Ordered By: YULIANA GEE Interpreted By: Matt Camp MD, 07/06/2024 11:47 AM [facility] Final Result * XR CHEST PA+LAT (07/06/2024 11:45 AM LABOR RELATIONS TEACHER) Anatomical Region Laterality Modality Chest Radiographic Nicolasa ging 07/06/2024 11:4 7 AM LABOR RELATIONS TEACHER Impressions 07/06/2024 11:54 AM LABOR RELATIONS TEACHER IMPRESSION: Right fifth through seventh ribs are present posteriorly and anterior right fifth rib fracture. No pneumothorax. Small effusion. Ordered By: YULIANA GEE Interpreted By: Matt Camp MD, 07/06/2024 11:47 AM Narrative 07/06/2024 11:54 AM LABOR RELATIONS TEACHER [id number] [place] [address] Procedure(s): XR CHEST PA+LAT, XR RIBS RT UNI Date of service: 07/06/2024 11:32 AM Provided clinical information: 83 years, Male, cough - rib pain from fall Procedure and materials: PA and lateral chest, AP and oblique views right ribs. Comparison studies: December 18, 2013. Findings: Cardiac silhouette is within normal limits. The lungs expanded clear of any consolidations. No pneumothorax. Minimal blunting of the right costophrenic angle due to pleural effusion. There is a minimally displaced right fifth rib anterior fracture. There are fractures of the posterior aspect of the right fifth, sixth and seventh ribs. No pneumothorax. Procedure Note Matt Camp MD - 07/06/2024 [facility] [address] [place] [address] Procedure(s): XR CHEST PA+LAT, XR RIBS RT UNI Date of service: 07/06/2024 11:32 AM Provided clinical information: 83 years, Male, cough - rib pain from fall Procedure and materials: PA and lateral chest, AP and oblique views rightribs. Comparison studies: December 18, 2013. Findings: Cardiac silhouette is within normal limits. The lungs expanded clear ofany consolidations. No pneumothorax. Minimal blunting of the rightcostophrenic angle due to pleural effusion. There is a minimally displaced right fifth rib anterior fracture. Thereare fractures of the posterior aspect of the right fifth, sixth andseventh ribs. No pneumothorax. IMPRESSION: Right fifth through seventh ribs are present posteriorly and anteriorright fifth rib fracture. No pneumothorax. Small effusion. Ordered By: YULIANA GEE Interpreted By: Matt Camp MD, 07/06/2024 11:47 AM [facility] Final Result * CORONAVIRUS (COVID-19) INFLUENZA A & B ANTIGEN IA PANEL (06/26/2024) CORONAVIRUS ANTIGEN IA NEGATIVE NEGATIVE [id number], [place] INFLUENZA A NEGATIVE NEGATIVE [id number], [place] INFLUENZA B NEGATIVE NEGATIVE [id number], [place] Internal Control: VALID VALID [id number], [place] NASAL STRUCTURE / Unknown 06/26/2024 Carlos [facility] - GENERAL ORDERAB LES Final Result [id number] [place] [address] [place] [address], from Last 3 Months Insurance Advance Directives * Full Code (Latest Code Status on File) Date Activated Date Inactivated Comments 02/21/2021 3:33 PM 02/22/2021 4:29 PM Care Teams Shake Packer Relationship Specialty [place] [address] [place] [address] PCP - General FAMILY PRACTICE 01/16/16 Kristopher Knight MD Three [facility]. [address] [place] [address] Chio Bowling Floor Desk Clerk CARDIOVASCULAR DISEASE 01/16/16
--- OUTSIDE RECORDS SUMMARY | 2024-08-29 11:04 | XMS_ITS | Encounter Summary ---
Author Organization [facility] Address [address] [place] [address] Care Team Providers Care Digital Advertising Analyst Name Role Phone Tam Candelario MD Primary Care Provider [phone] Kristopher Knight MD Unavailable Encounter Details Date Type Department Care Team (Late Contact Info) Description 07/25/2016 Abstract [facility] [address] [address] Adonis Baird MA Social History Tobacco Use Types Packs/Day Years Used Date Smoking Tobacco: Former Cigarettes Q uit: 1979 Smokeless Tobacco: Never Comments:Patient does not sm eve. Has smoked in the past. Quit approximately in 1979 Alcohol Use Standard Drinks/Week Comments Yes 0 (1 standard drink = 0.6 oz pure alcohol) Patient does drink alcohol. Drinks socially Sex and Gender Information Value Date Recorded Sex Assigned at Male 08/04/2024 7:45 AM SPECIMEN PREPARATION ASSISTANT Legal Sex Male 1:28 AM CDT Gender Identity Male 08/04/2024 8:01 AM SPECIMEN PREPARATION ASSISTANT Sexual Orientation Straight 08/11/2018 7: 24 AM SPECIMEN PREPARATION ASSISTANT Occupation Industry Job Start Date Job End Date Not on file Not on file Not on file Not on file documented as of this encounter Plan of Treatment Upcoming Encounters Date Type Department Care Team (Late st Contact Info) Description 01/25/2025 8:00 AM CDT Laboratory Only [facility] [id number] [place] [phone] 02/01/2025 9:00 AM CDT Office Visit [facility] - [place] [address] [place] [address] [place] [address] [place] [address] 05/26/2025 9:00 AM SPECIMEN PREPARATION ASSISTANT Appointment [facility] [address] [place] [address] Sandra Malhotra, NICK 3 [facility] [address] [place] [address] 05/31/2025 9:15 AM SPECIMEN PREPARATION ASSISTANT [facility] [address] [place] [phone] Kristopher Knight MD Three [facility]. [address] [place] [address] documented as of this encounter Procedures Procedure Name Priority Date/Time Associated Diagnosis Comments COMPREHENSIVE METABOLIC PANEL Routine 06/25/2017 LIPID PANEL Routine 06/25/2017 THYROXINE, FREE (FT4) Routine 06/25/2017 THYROID STIM HORMONE TSH Routine 06/25/2017 CBC (OUTSIDE LAB) Routine 07/31/2016 BASIC METABOLIC PANEL Routine 07/31/2016 COMPREHENSIVE METABOLIC PANEL Routine 06/05/2016 LIPID PANEL Routine 06/05/2016 THYROID STIM HORMONE TSH Routine 06/05/2016 documented in this encounter Results * THYROXINE, FREE (FT4) (06/25/2017) FREE T4 0.85 06/25/2017 [facility] Final Result * THYROID STIM HORMONE, TSH (06/25/2017) TSH 7.97 06/25/2017 [facility] Final Result * LIPID PANEL (06/25/2017) CHOLESTEROL 166 HDL 53 TRIGLYCERIDES 121 DIRECT LDL 84 06/25/2017 [facility] Edited Resul t - Final * COMPREHENSIVE METABOLIC PANEL (06/25/2017) SODIUM S/P/B 140 POTASSIUM S/P/B 4.1 CO2 25 CHLORIDE S/P/B 107 GLUCOSE 98 mg/dL CALCIUM S/P/B 9.4 BUN 15 CREATININE S/P/B 1.01 0.7 - 1.3 EGFR NON-AFR. AMER. >60 <=90 ALKALINE PHOSPHATASE S/P/B 61 ALT 22 AST 23 BILIRUBIN TOTAL S/P/B 0.6 ALBUMIN S/P/B 4.3 3.5 - 5.0 TOTAL PROTEIN S/P/B 6.8 06/25/2017 [facility] Edited Resul t - Final * BASIC METABOLIC PANEL (07/31/2016) SODIUM S/P/B 138 POTASSIUM S/P/B 4.0 CO2 12 CHLORIDE S/P/B 25 GLUCOSE 93 CALCIUM S/P/B 9.3 BUN 13 CREATININE S/P/B 1.09 0.7 - 1.3 EGFR NON-AFR. AMER. >60 <=90 07/31/2016 [facility] Edited Resul t - Final * CBC (OUTSIDE LAB) (07/31/2016) Pathologist [facility] WBC 7.7 HGB 14.3 HCT 40.5 PLT 188 07/31/2016 [facility] LAB-OUTSIDE/ABSTRACTED Final Result * THYROID STIM HORMONE, TSH (06/05/2016) Pathologist [facility] TSH 7.05 06/05/2016 us [facility] Final Result * LIPID PANEL (06/05/2016) Pathologist [facility] CHOLESTEROL 167 HDL 54 TRIGLYCERIDES 175 DIRECT LDL 86 06/05/2016 us Doc [facility] Final Result * COMPREHENSIVE METABOLIC PANEL (06/05/2016) Pathologist [facility] SODIUM S/P/B 140 POTASSIUM S/P/B 4.2 CO2 26 CHLORIDE S/P/B 106 GLUCOSE 98 CALCIUM S/P/B 9.6 BUN 14 CREATININE S/P/B 1.08 EGFR NON-AFR. AMER. >60 ALKALINE PHOSPHATASE S/P/B 59 ALT 22 AST 23 BILIRUBIN TOTAL S/P/B 1.1 ALBUMIN S/P/B 4.5 3.5 - 5.0 TOTAL PROTEIN S/P/B 7.1 06/05/2016 us Doc [facility] Final Result documented in this encounter Visit Diagnoses Not on filedocumented in this encounter Additional Health Concerns Infection Onset Date Last Indicated Resolved Time COVID-19 Rule Out 06/18/2023 06/18/2023 06/18/2023 9:06 AM SPECIMEN PREPARATION ASSISTANT Influenza - Seasonal 06/18/2023 06/18/2023 024 12:33 AM SPECIMEN PREPARATION ASSISTANT COVID-19 Rule Out 06/18/2023 06/18/2023 06/18/2023 11:01 AM SPECIMEN PREPARATION ASSISTANT COVID-19 Rule Out 06/26/2024 06/26/2024 06/26/2024 2:32 PM SPECIMEN PREPARATION ASSISTANT documented as of this encounter Care Teams Digital Advertising Analyst Relationship Specialty [place] [address] [place] [address] PCP - General FAMILY PRACTICE 01/16/16 Kristopher Knight MD [facility]. [address] [address] [place] Brick Loader CARDIOVASCULAR DISEASE 01/16/16 documented as of this encounter
--- OUTSIDE RECORDS SUMMARY | 2024-08-29 11:05 | XMS_ITS | Encounter Summary ---
Author Organization [facility] Address [address] [place] [address] Care Team Providers Care Adult Specialist Name Role Phone Tam Candelario MD Primary Care Provider [phone] Kristopher Knight MD Unavailable [phone] Encounter Details Date Type Department Care Team (Late Contact Info) Description 06/27/2015 Abstract [facility] [address] [phone] Kerry Navarro, ANP- Social History Tobacco Use Types Packs/Day Years Used Date Smoking Tobacco: Former Cigarettes Q uit: 1979 Comments:Patient does not sm eve. Has smoked in the past. Quit approximately in 1979 Alcohol Use Standard Drinks/Week Comments Yes 0 (1 standard drink = 0.6 oz pure alcohol) Patient does drink alcohol. Drinks socially Sex and Gender Information Value Date Recorded Sex Assigned at Male 08/04/2024 7:45 AM SPECIALTY PERSON Legal Sex Male 1:28 AM CDT Gender Identity Male 08/04/2024 8:01 AM SPECIALTY PERSON Sexual Orientation Straight 08/11/2018 7: 24 AM SPECIALTY PERSON Occupation Industry Job Start Date Job End Date Retired Not on file Not on file Not on file documented as of this encounter Plan of Treatment Upcoming Encounters Date Type Department Care Team (Late Contact Info) Description 01/25/2025 8:00 AM CDT Laboratory Only [facility] Family & Internal Medicine [address] [phone] 02/01/2025 9:00 AM CDT Office Visit [facility] Family & Internal Medicine [facility] [address] [place] [phone] [place] [address] [place] [address] 05/26/2025 9:00 AM SPECIALTY PERSON Appointment [facility] [address] [place] [address] Sandra Malhotra, [employer] SALES CONSULTANT [facility] [address] [place] [address] 05/31/2025 9:15 AM SPECIALTY PERSON Office Visit [place] [facility] [address] [place] [phone] Kristopher Knight MD Three [facility] [address] [place] [address] documented as of this encounter Visit Diagnoses Not on filedocumented in this encounter Additional Health Concerns Infection Onset Date Last Indicated Resolved Time COVID-19 Rule Out 06/18/2023 06/18/2023 06/18/2023 9:06 AM SPECIALTY PERSON Influenza - Seasonal 06/18/2023 06/18/202306/28/ 024 12:33 AM SPECIALTY PERSON COVID-19 Rule Out 06/18/2023 06/18/2023 06/18/2023 11:01 AM SPECIALTY PERSON COVID-19 Rule Out 06/26/2024 06/26/2024 06/26/2024 2:32 PM SPECIALTY PERSON documented as of this encounter Care Teams Adult Specialist Relationship Specialty [place] [address] [place] [address] PCP - General FAMILY PRACTICE 01/16/16 Kristopher Knight MD Three [facility] [address] [place] [address] [employer] CARDIOVASCULAR DISEASE 01/16/16 documented as of this encounter
--- OUTSIDE RECORDS SUMMARY | 2024-08-29 11:05 | XMS_ITS | Encounter Summary ---
Author Organization [facility] Address [address] [place] [address] Care Team Providers Care Conveyor Man Name Role Phone Tam Candelario MD Primary Care Provider [phone] Kristopher Knight MD Unavailable [phone] Encounter Details Date Type Department Care Team (Late st Contact Info) Description 09/24/2023 [employer] Message Enc [facility] Family & Internal Medicine [facility] [id number] [place] [phone] [employer], [facility] Provider Due for routine follow up appt Social History Tobacco Use Types Packs/Day Years Used Date Smoking Tobacco: Former Cigarettes 1 15 1 965 - 1979 Smokeless Tobacco: Never Comments:former smoker quit 1979 Alcohol Use Standard [...] Sex Assigned at Male 08/04/2024 7:45 AM 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 Answer Date of Assessment Author Status No 02/21/2021 3:00 PM CDT Activ e * Do you have serious difficulty walking or climbing stairs? Answer Date of Assessment Author Status No 02/21/2021 3:00 PM CDT Chelo Spivey RN Active * Do you have difficulty dressing or bathing? Answer Date of Assessment Author Status No 02/21/2021 3:00 PM CDT Chelo Spivey RN Active * Because of a physical, mental, or emotional condition, do you have difficulty doing errands alone such as visiting a doctor's office or shopping? Answer Date of Assessment Author Status No 02/21/2021 3:00 PM CDT Chelo Spivey RN Active documented as of this encounter Mental Status * Because of a physical, mental, or emotional condition, do you have serious difficulty concentrating, remembering, or making decisions? Answer Entry Date Author Status No 02/21/2021 3:00 PM CDT Chelo Spivey RN Active documented in this encounter Plan of Treatment Upcoming Encounters Date Type Department Care Team (Late st Contact Info) Description 01/25/2025 8:00 AM CDT Laboratory Only [facility] Family & Internal Medicine [facility] [address] [place] [phone] 02/01/2025 9:00 AM CDT Office Visit [facility] Family & Internal [facility] [address] [place] [phone] [place] [address] [place] [address] 05/26/2025 9:00 AM FIELD SERVICE TECH Appointment [facility] [address] [place], [place] [phone] Sandra Malhotra, NICK [address] [place] [address] 05/31/2025 9:15 AM FIELD SERVICE TECH Office Visit [place] [facility] [address] [place] [address] Kristopher Knight MD [facility] [address] [place] [address] documented as of this encounter Visit Diagnoses Not on filedocumented in this encounter Additional Health Concerns Infection Onset Date Last Indicated Resolved Time COVID-19 Rule Out 06/26/2024 06/26/2024 06/26/2024 2:32 PM FIELD SERVICE TECH Assessment Noted Time PHQ-9 Depression Total Score: 0 05/25/20 8:28 AM FIELD SERVICE TECH documented as of this encounter Care Teams Conveyor Man Relationship Specialty [place] [address] [place] [address] PCP - General FAMILY PRACTICE 01/16/16 Kristopher Knight MD [facility]. [facility] [address] [place] [address] [employer] CARDIOVASCULAR DISEASE 01/16/16 documented as of this encounter
[2024-08-29 11:29] VITALS: BP 148/79; PULSE 73; RESP 18; TEMP 36.4; O2SAT 98
--- NOTE | 2024-08-29 11:55 | ED.URI ---
HPI - URI/Sore Throat General Chief Complaint: Upper Respiratory Infection Stated Complaint: cough Source: patient Mode of arrival: ambulatory Limitations: no limitations History of Present Illness HPI Narrative: 83-year-old male presents to [facility] complaints of productive cough for the past week. reports that patient was treated for bronchitis in June and given albuterol inhaler and round of antibiotics of Zithromax at that time. Patient was then treated with another round of antibiotics cefdinir 1-2 weeks later. Patient reports that his productive cough returned 1 week ago. Patient is an ex-smoker. Patient denies recent travel. Patient reports that the cough is painful at times. MD elicited complaint: cough Onset (ago): week(s) (1) Able to tolerate fluids by mouth: Yes Related Data Home Medications ?Medication ?Instructions ?Recorded ?Confirmed ?Last Taken ?Type acetaminophen 500 mg capsule 500 mg PO Q6H PRN Pain 01/12/22 02/06/22 1 Day Ago History ~02/05/22 cholecalciferol (vitamin D3) 25 25 mcg PO DAILY 01/12/22 02/06/22 1 Day Ago History mcg (1,000 unit) capsule ~02/05/22 ibuprofen 400 mg tablet 400 mg PO Q6H PRN Pain 01/12/22 02/06/22 1 Day Ago History ~02/05/22 levothyroxine 100 mcg capsule 100 mcg PO DAILY 01/12/22 02/06/22 02/06/22 06:30 History liothyronine 5 mcg tablet 5 mcg PO DAILY 01/12/22 02/06/22 02/06/22 06:30 History meclizine 12.5 mg tablet 12.5 mg PO TID 01/12/22 02/06/22 1 Day Ago History ~02/05/22 mirtazapine 45 mg tablet 45 mg PO HS 01/12/22 02/06/22 1 Day Ago History ~02/05/22 nitroglycerin 0.4 mg sublingual 0.4 mg sublingual Q5M PRN Chest 01/12/22 02/06/22 Unknown History tablet Pain simvastatin 20 mg tablet 20 mg PO DAILY 01/12/22 02/06/22 1 Day Ago History ~02/05/22 triamcinolone acetonide 55 mcg 1 spray intranasal DAILY 01/12/22 02/06/22 1 Day Ago History nasal spray aerosol ~02/05/22 aspirin 81 mg tablet,delayed 81 mg PO DAILY 01/17/22 02/06/22 1 Day Ago History release ~02/05/22 pantoprazole 40 mg tablet,delayed 40 mg PO QAM 01/17/22 02/06/22 1 Day Ago History release ~02/05/22 Allergies Allergy/AdvReac Type Severity Reaction Status Date / Time celecoxib Allergy Mild Rash Verified 08/29/24 11:21 montelukast Allergy Mild Hives Verified 08/29/24 11:21 Penicillins AdvReac Intermediate DIZZINESS Verified 08/29/24 11:21 Review of Systems Constitutional: Constitutional: Denies chills, Denies fatigue, Denies fever(s) and Denies weakness ENT: Denies dizziness, Denies nasal congestion and Denies sore throat Respiratory: Respiratory: Reports chest congestion, Reports cough, Denies dyspnea and Denies wheezing Gastrointestinal: Gastrointestinal: Denies diarrhea, Denies nausea and Denies vomiting Musculoskeletal: Musculoskeletal: Denies arthralgias and Denies joint swelling Integumentary/Breasts: Skin/Breast: Denies rash Neurologic: Denies dizziness, Denies syncope and Denies headache(s) [facility] Past Medical History Medical History Tonsillectomy planned Obstructive sleep apnea Hypothyroidism Hyperlipidemia Erectile dysfunction Dyslipidemia BPH with urinary obstruction Coronary artery disease Arthritis Surgical History Surgical History H/O knee surgery H/O foot surgery History of heart artery stent Previous back surgery Social History Social History Smoking status: Never smoker Alcohol intake: former Alcohol use details: social Substance use: never Substance use type: does not use Living arrangements: with family Spiritual care concerns: No Comments At time of signature, I agree with nursing past medical, surgical, social and family history. There is no relevant family history pertinent to the presenting complaint. Exam Const: General: healthy appearing and no acute distress Nutritional Appearance: well nourished Orientation/consciousness: patient oriented x3 Limitations: no limitations HENMT: Head: normal to inspection Ears: external ears normal, TM's normal bilaterally and EAC's normal Face/Nose/Sinus: Normal external nose present Face and sinus: normal facial exam Mouth: Yes lip normal and Yes moist mucous membranes Throat: posterior oropharynx normal and uvula midline Eyes: Conjunctivae: conjunctivae normal Neck: Neck: normal visual inspection Resp: Effort & Inspection: normal respiratory effort and not labored Auscultation: clear to auscultation bilaterally, no crackles, no rales, no rhonchi and no wheezes Cardio: Rate: regular rate Rhythm: regular rhythm Heart sounds: no murmurs Skin: General skin exam: normal color Rashes: no rashes Neuro: General: patient oriented x3 and moves all extremities Speech: normal speech Psych: Affect: normal affect Attitude: cooperative Course Course Level of Care: Express Care Visit Vital Signs Vital signs: Vital Signs Temperature 36.4 C L 08/29/24 11:29 Pulse Rate 73 08/29/24 11:29 Respiratory Rate 18 08/29/24 11:29 Blood Pressure 148/79 H 08/29/24 11:29 Pulse Oximetry 98 08/29/24 11:29 Oxygen Delivery Room Air 08/29/24 11:29 Temperature 36.4 C L 08/29/24 11:29 Pulse Rate 73 08/29/24 11:29 Respiratory Rate 18 08/29/24 11:29 Blood Pressure 148/79 H 08/29/24 11:29 Pulse Oximetry 98 08/29/24 11:29 Oxygen Delivery Room Air 08/29/24 11:29 MDM - URI/Sore Throat MDM Narrative Medical decision making narrative: Discussed chest x-ray results with patient and . Educated patient importance of following up with primary care provider to discuss chronic cough, chronic findings noted on chest x-ray and possible pulmonology referral. Educated patient to proceed to the emergency room symptoms worsen Differential Diagnosis Differential diagnosis: Likely sinusitis, viral infection and bronchitis Imaging Data Radiologist's impression: Ordering Physician: Adriana Casey APRN Date of Service: 08/29/24 Procedure(s): XR chest 2V Accession Number(s): [id number] cc: Adriana Casey APRN; [employer], Tam Clayton MD~ EXAMINATION: XR chest 2V DATE: 08/29/2024 12:02 INDICATION: Cough. TECHNIQUE: Frontal and lateral views of the chest were obtained. COMPARISON: Single view 10/11/2012 FINDINGS: Calcified pulmonary nodules and calcified hilar and mediastinal lymph nodes are consistent with old granulomatous disease. No pleural effusion or pneumothorax. The heart size is normal. There are old healed bilateral rib fractures. IMPRESSION: 1. No acute cardiopulmonary disease. Reviewed, dictated and finalized at location A. [facility] Please be advised this is a medical document. It is intended for [id number] communication. It is written in medical language and may contain unfamiliar abbreviations or verbiage. Medical documents are intended to carry relevant information, facts as evident, and the clinical opinion of the practitioner at the time of the encounter. This report may have been done utilizing a voice recognition system. Attempts have been made to correct errors. However, there may be uncorrected grammatical, spelling, and recognition errors present. The file time of this note does not necessarily represent the time of service. Dictated By: Mike De La Torre MD 08/29/24 1204 Signed By: <Electronically signed by Mike De La Torre MD in OV> 08/29/24 1205 Critical Care Time Critical Care Time Critical Care Time: No Discharge Plan Discharge Clinical Impression: Cough Qualifiers: Cough type: unspecified Qualified Code(s): R05.9 - Cough, unspecified Patient Disposition: Home, Self-Care Condition: Stable Instructions: Chronic Cough (ED) Additional Instructions: Take Claritin daily Take cough medication as needed Follow-up with primary care provider to discuss chronic cough and chronic findings and chest x-ray Proceed to the emergency room if symptoms worsen Patient Language: Thai Prescriptions: New loratadine [Claritin] 10 mg tablet 10 mg PO DAILY Qty: 30 0RF benzonatate 100 mg capsule 100 mg PO BID PRN (Reason: cough) Qty: 20 0RF No Action ibuprofen 400 mg tablet 400 mg PO Q6H PRN (Reason: Pain) levothyroxine 100 mcg capsule 100 mcg PO DAILY liothyronine 5 mcg tablet 5 mcg PO DAILY meclizine 12.5 mg tablet 12.5 mg PO TID mirtazapine 45 mg tablet 45 mg PO HS simvastatin 20 mg tablet 20 mg PO DAILY cholecalciferol (vitamin D3) 25 mcg (1,000 unit) capsule 25 mcg PO DAILY triamcinolone acetonide 55 mcg aerosol,spray 1 spray intranasal DAILY Rx Instructions: administer into each nostril acetaminophen 500 mg capsule 500 mg PO Q6H PRN (Reason: Pain) nitroglycerin 0.4 mg tablet, sublingual 0.4 mg sublingual Q5M PRN (Reason: Chest Pain) Rx Instructions: do not exceed 3 doses per episode aspirin 81 mg tablet,delayed release (DR/EC) 81 mg PO DAILY pantoprazole 40 mg tablet,delayed release (DR/EC) 40 mg PO QAM Follow-up/Referrals: Kodak,Tam Clayton MD [Primary Care Provider] -
== END 2024-08-29 12:20 | disposition home or self-care (01) ==
PROVIDERS: Emergency Provider Nurse Practitioner Family; PCP Family Medicine
DX: R05.9 Cough, unspecified (principal); E03.9 Hypothyroidism, unspecified; E78.5 Hyperlipidemia, unspecified; I25.10 Atherosclerotic heart disease of native coronary artery without angina pectoris
CPT/HCPCS: 71046; 99213; G0463